=== PATIENT | female | born 1985 | race Caucasian/White ===

== ENCOUNTER 2021-11-10 17:51 | Outpatient (REF) | payer BC, SELFPAY ==
--- NOTE | 2021-11-10 14:45 | PAPFT_PTH ---
PATIENT: Aidee Stanton LOC: [facility] U#:[id number] AGE/SX: 36/F ROOM: RE11/10/[address]: Sammi Sullivan DO : 1985 BED: DIS: 11/10/2021 SPEC #: [id number] RECD: 11/10/21 18:09 STATUS: THEODORA REQ #: [id number] ZI: 11/10/21 14:[address]: Sammi Sullivan DEPT: [facility] Cytology RECD BY: Kerry Manning ENTERED: 11/10/21 18:09 SP TYPE: PAPFT OTHR DR: Unknown,Unknown Tissues: 1 - CX/ENDOCX FOR PAP SMEARS Procedures: PAP THIN PREP/U[facility] Screening HPV DNA PROBE Comments: [id number]
== END 2021-11-10 17:52 | disposition home or self-care (01) ==
LOC: LBN 17:51
PROVIDERS: Visit Provider Obstetrics & Gynecology
DX: Z12.4 Encounter for screening for malignant neoplasm of cervix (principal); Z11.51 Encounter for screening for human papillomavirus (HPV)
CPT/HCPCS: 88142; 87624

== ENCOUNTER 2021-11-29 02:37 | Outpatient (CLI) | payer BC, SELFPAY ==
[2021-11-29 12:44] LABS: Abs Immature Grans 0.04 10^3/uL (0.0-0.06); Absolute Basophil Count 0.04 10^3/uL (0.0-0.2); Absolute Eosinophil Count 0.61 10^3/uL (0.0-0.7); Absolute Lymphocyte Count 2.42 10^3/uL (1.2-3.4); Absolute Monocyte Count 0.59 10^3/uL (0.1-0.8); Absolute Neutrophil Count 5.03 10^3/uL (1.2-6.7); Basophils % 0.5; HCT 36.8 % (36.0-46.0); HGB 11.8 g/dL (11.2-15.7); Immature Grans % 0.5; Lymphocytes % 27.7; MCH 28.6 pg (27.0-33.0); MCHC 32.1 % (32.0-36.0); MCV 89.3 fL (80-95); MPV 9.8 fL (8.0-11.0); Monocytes % 6.8; Neutrophils % 57.5; Platelet Count 483 10^3/uL (130-400); RBC 4.12 10^6/uL (3.93-5.22); RDW 12.6 % (11.7-14.6); RDW-SD 41.8 fL; WBC 8.73 10^3/uL (4.4-10.8)
[2021-11-29 13:20] LABS: Source Nasal/Nares
[2021-11-29 17:27] LABS: COVID-19 PCR Negative (Negative)
== END 2021-11-29 02:38 | disposition home or self-care (01) ==
PROVIDERS: Visit Provider Obstetrics & Gynecology
DX: N93.8 Other specified abnormal uterine and vaginal bleeding (principal); Z20.822 Contact with and (suspected) exposure to COVID-19; Z01.818 Encounter for other preprocedural examination; Z01.812 Encounter for preprocedural laboratory examination
CPT/HCPCS: 36415; 86850; 86900; 86901; 87635; 85025

== ENCOUNTER 2021-11-29 02:53 | Outpatient (CLI) | payer BC, SELFPAY | END 2021-11-29 02:54 | disposition home or self-care (01) | LOC: LBO 02:53 | PROVIDERS: Visit Provider Obstetrics & Gynecology ==

== ENCOUNTER 2021-12-01 07:55 | Day surgery (SDC) | payer BC, SELFPAY ==
[2021-12-01 08:05] VITALS: BP 127/72; PULSE 68; RESP 18; TEMP 36.4; O2SAT 99
[2021-12-01] MEDS: Lactated Ringers 1,000 ML 125 ML IV (08:40)
--- NOTE | 2021-12-01 08:54 | ANES.PREOP_ITS ---
General Info Date of Service Date Performed: 12/01/21 Height: 5 ft 2 in Weight: 116.6 kg Body Mass Index (BMI): 47.0 Surgical Procedure: Operation Date: 12/01/21 10:40 Proposed Procedure Side Surgeon p Exam Under Anesthesia/ Endometrial Biopsy/ Excision Labial Cyst Sammi Sullivan DO s Insertion of IUD Sammi Sullivan DO Meds Allergies and Home Medications Allergies Allergy/AdvReac Type Severity Reaction Status Date / Time house dust mite Allergy Verified 12/01/21 08:12 Home Medication Medication Instructions Recorded cholecalciferol (vitamin D3) 50 50 mcg PO DAILY 11/10/21 mcg (2,000 unit) capsule doxazosin 2 mg tablet 2 mg PO DAILY 11/10/21 fluoxetine 40 mg capsule 40 mg PO DAILY 11/10/21 losartan 100 mg tablet 100 mg PO DAILY 11/10/21 metoprolol succinate 100 mg 100 mg PO DAILY 11/10/21 tablet,extended release 24 hr spironolactone 25 mg tablet 25 mg PO DAILY 11/10/21 furosemide 40 mg tablet 40 mg PO DAILY 11/30/21 Current Visit Medications: Current Medications Generic Name Dose Route Start Last Admin Trade Name Freq PRN Reason Stop Dose Admin Ringer's Solution 1,000 mls @ 125 mls/hr 12/01/21 06:00 12/01/21 08:40 IV 12/30/21 23:59 125 mls/hr INFUSION DUGLAS Administration IV Miscellaneous Supplies 1 each 12/01/21 06:00 Iv Access IV 12/30/21 23:59 DIRECTED DUGLAS Sodium Chloride 0 ml 12/01/21 06:00 Normal Saline Flush 10 Ml Syr IV 12/30/21 23:59 PRN PRN Sodium Chloride 0 ml 12/01/21 06:00 Normal Saline 10 Ml Vial IJ 12/30/21 23:59 DIRECTED PRN Sterile Water 0 ml 12/01/21 06:00 Water,Injection,Sterile 10 Ml Vial IJ 12/30/21 23:59 DIRECTED PRN PFSH Active Problems Active Problems: Problem Status Onset Code CHF (congestive heart failure) I50.9 Hypertension I10 Dysfunctional uterine bleeding N93.8 Obesity E66.9 Medical History Medical History Congestive heart failure (CHF) Pt. 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 Dr. Mcneill, ableto walk across a parking lot without SOB, chest pain or pressure, states no symptoms, and is being treated with medication. Pt. states last ECHO was at least a year ago. Surgical History Surgical History (Updated 12/01/21 @ 08:12 by Kia Duncan) History of cholecystectomy History of thyroidectomy Tobacco Smoking/Tobacco Use Status: Never Alcohol Alcohol Intake: never Substance Use Substance use: Never Substance use type: does not use Prental History History 0 Para Hx # Term Pregnancies Multiple births Hx # Pregnancies Ectopic pregnancies AB induced Hx Number of Living Children AB spontaneous Vital Signs and Lab Results Vital Signs Most Recent Vital Signs in EMR: Most Recent Vital Signs Temp Pulse Resp BP Pulse Ox 36.4 C L 68 18 127/72 99 12/01/21 08:05 12/01/21 08:05 12/01/21 08:05 12/01/21 08:05 12/01/21 08:05 Lab Results Result Diagrams: 12/01/21 09:30 Blood Type / Crossmatch: Patient ABO/Rh A Positive 11/29/21 Antibody Screen NEGATIVE 11/29/21 Complete Blood Count: White Blood Count 8.73 10^3/uL (4.4-10.8) 11/29/21 12:25 11/29/21 Red Blood Count 4.12 10^6/uL (3.93-5.22) 11/29/21 12:25 11/29/21 Hemoglobin 11.8 g/dL (11.2-15.7) 11/29/21 12:25 11/29/21 Hematocrit 36.8 % (36.0-46.0) 11/29/21 12:25 11/29/21 Platelet Count 483 10^3/uL (130-400) H 11/29/21 12:25 11/29/21 Complete Metabolic Panel: Sodium Level 136 mmol/L (136-145) 12/01/21 09:30 12/01/21 Potassium Level 3.5 mmol/L (3.5-5.1) 12/01/21 09:30 12/01/21 Chloride Level 102 mmol/L (98-107) 12/01/21 09:30 12/01/21 Carbon Dioxide Level 26.5 mmol/L (21.0-32.0) 12/01/21 09:30 12/01/21 Liver Function Panel: No Data to Display Coagulation Panel: No Data to Display Cardiac Panel: No Data to Display Arterial Blood Gas: No Data to Display Venous Blood Gas: No Data to Display Pancreas Panel: No Data to Display Thyroid Panel: No Data to Display Infectious Disease: Coronavirus (COVID-19)(PCR) Negative (Negative) 11/29/21 12:50 11/29/21 Coronavirus 2019 Source Nasal/Nares 11/29/21 12:50 11/29/21 Blood Cultures: No Data to Display Toxicology Panel: No Data to Display Panel: No Data to Display Anesthesia Assessment and Plan Anesthesia History Personal History: No History of Anesthesia Complications Family History: No Family History of Anesthesia Complications Exercise Tolerance Exercise Tolerance: Metabolic Equivalents>4 Pertinent Negatives Pertinent Negatives: No Symptoms of GERD, No Major Cardiovascular Symptoms or Complaints (Pt states CHF but functional), No Major Pulmonary Symptoms or Complaints and No History of CVA/TIA Cardiac & Pulmonary Exam Cardiac Exam: Normal S1/S2 Heart Sounds Pulmonary Exam: Clear Bilateral Breath Sounds Implantable Cardiac Device Does patient have a Pacemaker or an ICD?: No Airway Exam Known Difficult Airway: No Mallampati Class: 2 Mouth Opening: Normal (> 3cm) Thyromental Distance: Greater than 3 cm Neck Range of Motion: Full ROM Neck Circumference: Thick Teeth Condition: Normal Dentition ASA Classification ASA Score: ASA 3 Emergency Case?: No NPO Status NPO Status: NPO Clears >2 hours, Solids >8 hours Status Status: Not Per Patient and Negative HCG Anesthesia Plan Resuscitation Status: Full Code Anesthesia Technique: General Anesthesia Airway Planned: Natural Airway Monitors Used: Standard Monitors
[2021-12-01 09:43] LABS: Anion Gap 7.5 mmol/L (3-11); CO2 26.5 mmol/L (21.0-32.0); Chloride 102 mmol/L (98-107); Potassium 3.5 mmol/L (3.5-5.1); Sodium 136 mmol/L (136-145)
[2021-12-01 10:15] VITALS: BMI 47.0
--- NOTE | 2021-12-01 10:33 | ENDOMET_PTH ---
PATIENT: Aidee Stanton LOC: [facility] U#:[id number] AGE/SX: 36/F ROOM: RE12/01/[address]: Sammi Sullivan DO : 1985 BED: DIS: 12/01/2021 SPEC #: [id number] RECD: 12/01/21 12:29 STATUS: THEODORA REQ #: [id number] ZI: 12/01/21 10:[address]: Sammi Sullivan DEPT: Surgical Specimen RECD BY: Kerry Manning ENTERED: 12/01/21 12:29 SP TYPE: Endomet OTHR DR: No Local Tissues: 1 - ENDOMETRIUM BX/CURRETTE Procedures: GROSS AND MICRO LEVEL 4 Comments: [id number]
--- NOTE | 2021-12-01 10:53 | W.PM.OP ---
Date of service: 12/01/21 Time of Service: 10:53 Operative Note Operative Note DATE OF PROCEDURE: 12/01/21 PRE-OP DIAGNOSIS: Dysfunctional uterine bleeding, cystic structure of the labia minora, left POST-OP DIAGNOSIS: same (With cystic area consistent with venous varicosity) PROCEDURE: Exam under anesthesia, endometrial biopsy, placement of Mirena system. SURGEON: Sammi Sullivan Refer to Anesthesia Record ESTIMATED BLOOD LOSS: 2 PATHOLOGY: other (Endometrial biopsy) COMPLICATIONS: None Patient was transported to: same day Patient's condition: stable Implants: Mirena intrauterine device. Lot number [id number] at the with an expiration date of 03/14/2024 Indications: Dysfunctional uterine bleeding Findings: Midline mobile uterus. Moderate tissue with endometrial biopsy. Labial cyst consistent with vulvar varicosity Procedure Description: Patient was taken the operating suite with an IV running where she is placed in dorsal supine position. Anesthesia administered via monitored anesthesia care. She was then placed in the modified dorsolithotomy position in yellowfin stirrups and prepped and draped in usual sterile fashion. Exam under anesthesia revealed a uterus that was midline and mobile. On inspection of the vulva, the labia minora was slightly dilated on the left and fluctuant. With careful inspection it was this was noted to be more vascular, consistent with a venous varicosity rather than a cystic structure or hamartoma which was my initial suspicion. In light of the vascularity, I do not think that this is appropriate to be resected at this time. She is having no complaints or issues related to this area. At this point speculum was inserted and a single-tooth tenaculum used to grasp the anterior lip of the cervix. Endometrial Pipelle passed with ease for endometrial sampling. Uterus sounded to 7 cm. The Mirena system was inserted through the cervical os to 1 cm from the fundus and deployed. Strings cut to 3 cm. Tenaculum and speculum were both removed. Patient was returned to the dorsal supine position and awoke from anesthesia with ease. She was taken to same-day surgery in stable condition. EBL: 2 mL Complications: None apparent Pathology: Endometrial sampling Implants, Mirena system IUD with lot number [id number] expiration 03/2024
[2021-12-01 10:55] VITALS: BP 106/54; PULSE 70; RESP 16; TEMP 36; O2SAT 96
[2021-12-01 11:31] VITALS: BP 96/68; PULSE 55; RESP 16; TEMP 36; O2SAT 98
--- NOTE | 2021-12-01 11:47 | W.ANESPOSTOP ---
Postoperative Evaluation Date, Time and Location Date Performed: 12/01/21 Time Performed: 11:47 Patient Location: Day Surgery Unit Vital Signs Most Recent Imported Vital Signs: Most Recent Vital Signs Temp Pulse Resp BP Pulse Ox 36 C L 55 L 16 96/68 L 98 12/01/21 11:31 12/01/21 11:31 12/01/21 11:31 12/01/21 11:31 12/01/21 11:31 Pain Score Most Recent Pain Score: Most Recent Pain Score Pain Level 0 12/01/21 11:31 Assessment Mental Status: Awake (Alert & Oriented to Patient Baseline) Airway and Respiratory Function: Patent airway with normal (patient baseline) respiratory exam Cardiovascular Function: Hemodynamically Stable Hydration Status: Adequately Hydrated Nausea & Vomiting: No Nausea or Vomiting Pain: Pt. Denies Any Pain Peripheral Nerve Block: Patient did not receive a nerve block
== END 2021-12-01 12:40 | disposition home or self-care (01) ==
PROVIDERS: Visit Provider Obstetrics & Gynecology
PROC: (CPT 58100; principal; 2021-12-01 10:30)
PROC: (CPT 58100; 2021-12-01 10:30)
DX: N93.8 Other specified abnormal uterine and vaginal bleeding (principal); I86.3 Vulval varices; Z30.430 Encounter for insertion of intrauterine contraceptive device; N85.00 Endometrial hyperplasia, unspecified
CPT/HCPCS: 58100; 58300; 80051; 81025; 88305; J1100; J1885; J2001; J2405; J2704